=== PATIENT | male | born 1980 | race Caucasian/White ===

== ENCOUNTER 2016-10-23 10:45 | Emergency (ER) | payer OTHER ==
[2016-10-23 10:45] VITALS: BMI 32.9
[2016-10-23 10:51] VITALS: TEMP 98
--- NOTE | 2016-10-23 11:40 | C.PDOC ---
History Of Present Illness 10/23/2016 José Miguel Sethi is a 36 year old male, whose past medical history includes tendonitis, presents to the emergency department complaining of bilateral knee pain for the past three days. Patient reports that seven months ago he was evaluated at the emergency room for the same symptoms, and when he followed up with the orthopedics he was diagnosed with tendonitis. Patient notes working in construction and has not taken any medication to relieve the pain. Patient denies any trauma or injuries. Patient denies any chest pain, shortness of breath, back pain, dysuria, fever, or other complaints. Time Seen by Provider: 10/23/16 11:01 Chief Complaint (Nursing): Lower Extremity Problem/Injury History Per: Patient History/Exam Limitations: no limitations Onset/Duration Of Symptoms: Days (3 days) Current Symptoms Are (Timing): Still Present - Hip Description Of Injury: denies: Fell - Knee Description Of Injury: denies: Fell - Ankle/Foot Description Of Injury: denies: Fell, Struck With Object Past Medical History Reviewed: Historical Data, Nursing Documentation, Vital Signs Vital Signs: Last Vital Signs Temp 98 F 10/23/16 10:48 Pulse 78 10/23/16 11:47 Resp 16 10/23/16 11:47 BP 138/78 10/23/16 11:47 Pulse Ox 100 10/23/16 22:12 - Medical History PMH: Asthma, Gastritis - [facility] Procedures CLOSURE SKIN & SUBCUTANEOUS NEC (02/08/13) TETANUS TOXOID ADMINIST (02/08/13) Family History: States: Unknown Family Hx - Social History Hx Tobacco Use: Yes Hx Alcohol Use: No (STOPPED DRINKING) Hx Substance Use: No - Immunization History Hx Tetanus Toxoid Vaccination: No Hx Influenza Vaccination: No Hx Pneumococcal Vaccination: No Review Of Systems Constitutional: Negative for: Fever Cardiovascular: Negative for: Chest Pain Respiratory: Negative for: Shortness of Breath Gastrointestinal: Negative for: Vomiting, Abdominal Pain Genitourinary: Negative for: Dysuria Musculoskeletal: Positive for: Leg Pain (bilateral knee pain ). Negative for: Back Pain Neurological: Negative for: Dizziness Physical Exam - Physical Exam Appears: Well, Non-toxic, No Acute Distress Skin: Normal Color, Warm, Dry Head: Atraumatic, Normacephalic Back: Normal Inspection Extremity: Normal ROM, Tenderness (mild tenderness distal to patella bilaterally ), No Calf Tenderness, No Swelling, Other (no erythema or warmth) Extremity: Bilateral: No Pedal Edema, Normal Color And Temperature, Normal ROM Pulses: Left Dorsalis Pedis: Normal, Right Dorsalis Pedis: Normal Neurological/Psych: Oriented x3, Normal Speech, Normal Cognition, Normal Motor, Normal Sensation ED Course And Treatment O2 Sat by Pulse Oximetry: 100 (room air) Pulse Ox Interpretation: Normal Medical Decision Making Medical Decision Making: pt reports spome improvement in pain in knees after Toradol. Will d/c with nsaids and pmd f/u. Impression: 36 year old male with mild tenderness distal to patella. Plan: --Toradol -- Reassess and disposition Disposition Counseled Patient/Family Regarding: Diagnosis, Need For Followup, Rx Given - Disposition Referrals: [facility] [Outside] [facility] [Outside] Disposition: HOME/ ROUTINE Disposition Time: 11:38 Condition: IMPROVED Additional Instructions: New [place] Naproxen stephanie prescrbied (con comida). Seguir en la clnica ketan o con el ortopedista Dr. Dwyer si el dolor persiste. Prescriptions: Naproxen 500 mg PO BID #20 tab Instructions: Patellar Tendinitis (ED) Forms: Gen Discharge Inst Vietnamese, [employer] (Vietnamese) Print Language: GUATEMALAN - Clinical Impression Clinical Impression: Knee pain, bilateral, Patellar tendonitis of both knees - Scribe Statement The provider has reviewed the documentation as recorded by the Scribe 10/23/2016 Scribe Attestation: Asha Hercules MD Scribe Attestation: All medical record entries made by the Scribe were at my direction and personally dictated by me. I have reviewed the chart and agree that the record accurately reflects my personal performance of the history, physical exam, medical decision making, and the department course for this patient. I have also personally directed, reviewed, and agree with the discharge instructions and disposition.
[2016-10-23 11:48] VITALS: BP 138/78; PULSE 78; RESP 16
[2016-10-23 12:12] VITALS: O2SAT 100
== END 2016-10-23 11:47 | disposition home or self-care (01) ==
LOC: C.ER 10:45
DX: M76.52 Patellar tendinitis, left knee (principal); M76.51 Patellar tendinitis, right knee; M25.562 Pain in left knee; M25.561 Pain in right knee
CPT/HCPCS: 96372; 99283; J1885

== ENCOUNTER 2017-05-09 17:43 | Emergency (ER) | payer OTHER ==
[2017-05-09 17:43] VITALS: BMI 32.9
[2017-05-09] MEDS ORDERED: Iohexol 240 (50 ml) PO STA (17:54)
[2017-05-09] MEDS ORDERED: Sodium Chloride 0.9% 1,000 ML IV ONE (17:54)
[2017-05-09] MEDS ORDERED: Sodium Chloride 0.9% 1,000 ML ONE (17:58)
[2017-05-09] MEDS ORDERED: Iohexol 240 (50 ml) ONE (17:58)
--- NOTE | 2017-05-09 18:04 | C.PDOC ---
History Of Present Illness 37 y/o male presents to ED with complaints of intermittent mid abdominal pain for 1 week associated with nausea. Patient states last night pain became more intense and has been constant since which prompted visit to ED today. Patient reports similar symptoms 2 years ago but states they resolved on their own. Patient is able to tolerate po intake and denies vomiting, diarrhea or any other complaints at this time. Time Seen by Provider: 05/09/17 17:51 Chief Complaint (Nursing): Abdominal Pain History Per: Patient History/Exam Limitations: no limitations Onset/Duration Of Symptoms: Days Current Symptoms Are (Timing): Still Present Past Medical History Reviewed: Historical Data, Nursing Documentation, Vital Signs Vital Signs: Last Vital Signs Temp 98.6 F 05/09/17 17:46 Pulse 78 05/09/17 19:07 Resp 20 05/09/17 19:07 BP 127/80 05/09/17 19:07 Pulse Ox 98 05/09/17 19:07 - Medical History PMH: Asthma, Gastritis Surgical History: No Surg Hx - [facility] Procedures CLOSURE SKIN & SUBCUTANEOUS NEC (02/08/13) TETANUS TOXOID ADMINIST (02/08/13) Family History: States: No Known Family Hx - Social History Hx Tobacco Use: Yes Hx Alcohol Use: No (STOPPED DRINKING) Hx Substance Use: No - Immunization History Hx Tetanus Toxoid Vaccination: No Hx Influenza Vaccination: No Hx Pneumococcal Vaccination: No Review Of Systems Constitutional: Negative for: Fever, Chills Gastrointestinal: Positive for: Nausea, Abdominal Pain. Negative for: Vomiting , Diarrhea Skin: Negative for: Rash Physical Exam - Physical Exam Appears: Non-toxic, No Acute Distress Skin: Warm, Dry, No Rash Head: Atraumatic, Normacephalic Oral Mucosa: Moist Neck: Normal ROM, Supple Cardiovascular: Rhythm Regular Respiratory: Normal Breath Sounds, No Rales, No Rhonchi, No Wheezing Gastrointestinal/Abdominal: Soft, Tenderness (Epigastrium area, LUQ and LLQ ), No Guarding, No Rebound Back: No CVA Tenderness Extremity: Normal ROM, Capillary Refill (<2 seconds) Neurological/Psych: Oriented x3, Normal Speech ED Course And Treatment - Laboratory Results Result Diagrams: 05/09/17 18:02 05/09/17 18:02 Lab Interpretation: Normal O2 Sat by Pulse Oximetry: 100 (RA) Pulse Ox Interpretation: Normal - CT Scan/US CT abdomen and pelvis Other Rad Studies (CT/US): Read By Radiologist, Radiology Report Reviewed CT/US Interpretation: Accession No. : [id number]. Patient Name / ID : CORRINE MAE / [id number]. Exam Date : 05/09/2017 19:29:39 ( Approved ). Study Comment : Sex / Age : M / 37Y. Creator : STACY BOWER. Dictator : Senior Java J2Ee Developer : Newspaper Journalist : STACY BOWER. Approver2 : Report Date : 05/09/2017 20:30:00. My Comment : . [facility] Division of Radiology. [address] [place] [address]. Tel. no. . . . Patient Name: CARMELITA CASTLE . Pt. [address]: [address] [place] [address]. Rec #: [id number]. [place] [address]: Jared STAFFORD, Idalmis Redding. Pt Order Location: [facility] : 1980 Male Age: 37 Order #: [id number]. Reason for exam: abd pain. . . . . . CT Scan. . . ABD PELVIS PO IV CONTRAST Exam Date : 05/09/17. . This imaging exam was performed at [facility]. EXAM: CT Abdomen and Pelvis With Intravenous Contrast. . EXAM DATE/TIME: 05/09/2017 5: 54 PM. . CLINICAL HISTORY: 37 years old, male; Pain; Abdominal pain; Periumbilical; Additional info: Abd. pain. . TECHNIQUE: Axial computed tomography images of the abdomen and pelvis with intravenous. contrast. All CT scans at this facility use one or more dose reduction. techniques, viz.: automated exposure control; ma/kV adjustment per patient size. (including targeted exams where dose is matched to indication; i.e. head); or. iterative reconstruction technique. Coronal and sagittal reformatted images were created and reviewed. . CONTRAST: 100 mL of omnipaque 300 administered intravenously. . COMPARISON: CT - ABD PELVIS PO IV CONTRAST 2013-04-19 11: 20. . FINDINGS: Lower thorax: Heart size is normal. No distal esophagus is partially. distended with air and fluid there is dependent atelectasis there is minimal. scarring at the lung bases. . ABDOMEN: Liver: There is fatty infiltration of the liver. Gallbladder and bile ducts: unremarkable. Pancreas : unremarkable. Spleen: unremarkable. Adrenals: unremarkable. Kidneys and ureters: unremarkable. Stomach and bowel: Stomach is distended with contrast and air. Rotation is. normal. Small bowel is incompletely opacified with oral contrast which limits. evaluation of the ileocecal region. There is no obstruction. Terminal ileum is. unremarkable. Visualized portions of the appendix is unremarkable. Colon is. incompletely distended which limits evaluation. There is scattered. diverticulosis old. Appendix: See stomach and bowel. . PELVIS: Bladder: unremarkable. Reproductive: Seminal vesicles and prostate are unremarkable. . ABDOMEN and PELVIS: Intraperitoneal space: There is no free air or free fluid. Bones/joints: There are no acute osseous abnormalities. There is minimal. spondylosis. Soft tissues: There is a small fat containing umbilical hernia. Vasculature: Vascular structures are unremarkable. Lymph nodes: There is no pathologic adenopathy. . IMPRESSION: Fatty liver, no acute solid visceral abnormality; no CT findings. of acute appendicitis or diverticulitis. . Additional nonemergent findings as described above. . Dictated By: Stacy Alicea MD., MD. Dictated Date/Time: 05/09/172029. Signed By: Stacy Calvert MD. Date Signed: 05/09/172029. Transcribed By: [facility]. Transcribe Date/Time: 05/09/172029. CHARLY/TOD Reevaluation Time: 20:46 Reassessment Condition: Improved Disposition Counseled Patient/Family Regarding: Studies Performed, Diagnosis, Need For Followup, Rx Given - Disposition Referrals: [facility] [Outside] Disposition: HOME/ ROUTINE Disposition Time: 20:48 Condition: IMPROVED Additional Instructions: Take Pepcid AC twice a day. Follow up with a central office technician for furtherwork-up Prescriptions: Ondansetron ODT [Zofran ODT] 1 odt PO BID PRN #6 odt PRN Reason: Nausea/Vomiting Instructions: Acute Abdomen (Belly Pain), Adult (DC) Forms: [employer] Connect (Italian) - Clinical Impression Clinical Impression: Abdominal discomfort - Scribe Statement The provider has reviewed the documentation as recorded by the Crystalibremington Martinez All medical record entries made by the Crystalibremington were at my direction and personally dictated by me. I have reviewed the chart and agree that the record accurately reflects my personal performance of the history, physical exam, medical decision making, and the department course for this patient. I have also personally directed, reviewed, and agree with the discharge instructions and disposition.
[2017-05-09 18:06] LABS: BASO # 0.1 K/uL (0.0-0.2); BASO % 1.7 % (0.0-2.0); EOS # 0.3 K/uL (0.0-0.7); EOS % 3.3 % (0.0-4.0); HEMOGLOBIN 15.1 g/dL (12.0-18.0); LYMPH # 3.5 K/uL (1.0-4.3); LYMPH % 39.1 % (20.0-40.0); MEAN CELL VOLUME 87.8 fL (80.0-94.0); MEAN CORPUSCULAR HEMOGLOBIN 30.1 pg (27.0-31.0); MEAN CORPUSCULAR HGB CONC 34.3 g/dL (33.0-37.0); MEAN PLATELET VOLUME 8.9 fL (7.2-11.7); MONO # 0.6 K/uL (0.0-0.8); MONO % 6.7 % (0.0-10.0); NEUT # 4.5 K/uL (1.8-7.0); NEUT % 49.2 % (50.0-75.0); NRBC % 0.1 % (0.0-2.0); RBC 5.02 Mil/uL (4.40-5.90); RED CELL DISTRIBUTION WIDTH 13.5 % (11.5-14.5)
[2017-05-09 18:08] LABS: URINE BILIRUBIN NEGATIVE (NEGATIVE); URINE BLOOD NEGATIVE (NEGATIVE); URINE CLARITY Clear (Clear); URINE COLOR Yellow (YELLOW); URINE GLUCOSE (UA) NORMAL (Normal); URINE LEUKOCYTE ESTERASE NEG Leu/uL (Negative); URINE PROTEIN 1+ mg/dL (NEGATIVE)
[2017-05-09 18:32] LABS: ALB/GLOB RATIO 1.2 (1.0-2.1); ALBUMIN 4.8 g/dL (3.5-5.0); ALT/SGPT 44 U/L (21-72); AST/SGOT 35 U/L (17-59); BLOOD UREA NITROGEN 15 mg/dL (9-20); CALCIUM 9.1 mg/dl (8.6-10.4); GFR AFRICAN-AMERICAN > 60; GFR NON-AFRICAN AMERICAN > 60; LIPASE 154 U/L (23-300)
[2017-05-09] MEDS ORDERED: Iohexol 300 100 ML IJ ONE (18:49)
--- NOTE | 2017-05-09 20:30 | CT ---
EXAM: CT Abdomen and Pelvis With Intravenous Contrast EXAM DATE/TIME: 05/09/2017 5:54 PM CLINICAL HISTORY: 37 years old, male; Pain; Abdominal pain; Periumbilical; Additional info: Abd pain TECHNIQUE: Axial computed tomography images of the abdomen and pelvis with intravenous contrast. All CT scans at this facility use one or more dose reduction techniques, viz.: automated exposure control; ma/kV adjustment per patient size (including targeted exams where dose is matched to indication; i.e. head); or iterative reconstruction technique. Coronal and sagittal reformatted images were created and reviewed. CONTRAST: 100 mL of omnipaque 300 administered intravenously. COMPARISON: CT - ABD PELVIS PO IV CONTRAST 2013-04-19 11:20 FINDINGS: Lower thorax: Heart size is normal. No distal esophagus is partially distended with air and fluid there is dependent atelectasis there is minimal scarring at the lung bases ABDOMEN: Liver: There is fatty infiltration of the liver. Gallbladder and bile ducts: unremarkable Pancreas: unremarkable Spleen: unremarkable Adrenals: unremarkable Kidneys and ureters: unremarkable Stomach and bowel: Stomach is distended with contrast and air. Rotation is normal. Small bowel is incompletely opacified with oral contrast which limits evaluation of the ileocecal region. There is no obstruction. Terminal ileum is unremarkable. Visualized portions of the appendix is unremarkable. Colon is incompletely distended which limits evaluation. There is scattered diverticulosis old Appendix: See stomach and bowel PELVIS: Bladder: unremarkable Reproductive: Seminal vesicles and prostate are unremarkable. ABDOMEN and PELVIS: Intraperitoneal space: There is no free air or free fluid. Bones/joints: There are no acute osseous abnormalities. There is minimal spondylosis Soft tissues: There is a small fat containing umbilical hernia. Vasculature: Vascular structures are unremarkable. Lymph nodes: There is no pathologic adenopathy. IMPRESSION: Fatty liver, no acute solid visceral abnormality; no CT findings of acute appendicitis or diverticulitis Additional nonemergent findings as described above.
[2017-05-09 20:59] VITALS: BP 122/82; PULSE 71; RESP 18; TEMP 97.6; O2SAT 99
== END 2017-05-09 21:00 | disposition home or self-care (01) ==
LOC: C.ER 17:43
DX: R10.13 Epigastric pain (principal)
CPT/HCPCS: 74177; 80053; 81001; 83690; 85025; 96360; 99285; J7040; Q9966; Q9967

== ENCOUNTER 2017-08-03 17:15 | Emergency (ER) | payer OTHER ==
[2017-08-03 17:39] VITALS: BMI 29.9
[2017-08-03 17:44] VITALS: RESP 16
[2017-08-03] MEDS ORDERED: Sodium Chloride 0.9% 1,000 ML IV ONE (18:38)
--- NOTE | 2017-08-03 18:53 | C.PDOC ---
History Of Present Illness 37 y/o male with history of Asthma presents to ED with c/o intermittent worsening abdominal pain. Patient admits to nausea but is able to tolerate po intake. Patient also c/o headache, congestion, yellow phlegm cough since this morning and urinary frequency for 2 months. Patient denies fever, chills, chest pain, nausea, vomiting or any other complaints at this time. Time Seen by Provider: 08/03/17 18:03 Chief Complaint (Nursing): Abdominal Pain History Per: Patient History/Exam Limitations: no limitations Onset/Duration Of Symptoms: Days Current Symptoms Are (Timing): Still Present Location Of Pain/Discomfort: Diffuse Past Medical History Reviewed: Historical Data, Nursing Documentation, Vital Signs Vital Signs: Last Vital Signs Temp 97.7 F 08/03/17 17:41 Pulse 69 08/03/17 17:41 Resp 16 08/03/17 17:41 BP 135/81 08/03/17 17:41 Pulse Ox 100 08/03/17 18:54 - Medical History PMH: Asthma, Gastritis Surgical History: No Surg Hx - [facility] Procedures CLOSURE SKIN & SUBCUTANEOUS NEC (02/08/13) TETANUS TOXOID ADMINIST (02/08/13) Family History: States: No Known Family Hx - Social History Hx Tobacco Use: Yes Hx Alcohol Use: No (STOPPED DRINKING) Hx Substance Use: No - Immunization History Hx Tetanus Toxoid Vaccination: No Hx Influenza Vaccination: No Hx Pneumococcal Vaccination: No Review Of Systems Constitutional: Negative for: Fever, Chills Cardiovascular: Negative for: Chest Pain Respiratory: Positive for: Cough Gastrointestinal: Positive for: Abdominal Pain. Negative for: Nausea, Vomiting Genitourinary: Positive for: Frequency. Negative for: Dysuria Skin: Negative for: Rash Physical Exam - Physical Exam Appears: Non-toxic, No Acute Distress Skin: Warm, Dry, No Rash Head: Atraumatic, Normacephalic Eye(s): bilateral: Normal Inspection Oral Mucosa: Moist Throat: Erythema, No Exudate, No Drooling Neck: Normal ROM, Supple Cardiovascular: Rhythm Regular Respiratory: Normal Breath Sounds, No Rales, No Rhonchi, No Wheezing Gastrointestinal/Abdominal: Soft, Tenderness (Diffuse), Guarding (Voluntary), No Rebound Back: No CVA Tenderness, No Paraspinal Tenderness Neurological/Psych: Oriented x3, Normal Speech, Normal Cognition ED Course And Treatment - Laboratory Results Result Diagrams: 08/03/17 18:57 08/03/17 18:57 Lab Interpretation: Normal (unchanged from prior visit 04/2017) O2 Sat by Pulse Oximetry: 100 (RA) Pulse Ox Interpretation: Normal Progress Note: CT scan done 04/2017 reviewed. Reevaluation Time: 20:39 Reassessment Condition: Unchanged (Patient still c/o abdominal pain but appears comfortable. Abdomen remains soft without localized tenderness or guarding.) Disposition Counseled Patient/Family Regarding: Studies Performed, Diagnosis, Need For Followup, Rx Given - Disposition Referrals: [facility] [Outside] Disposition: HOME/ ROUTINE Disposition Time: 20:40 Condition: STABLE Prescriptions: Dicyclomine [Bentyl] 20 mg PO QID PRN #20 tab PRN Reason: Pain, Moderate (4-7) Instructions: Acute Abdomen (Belly Pain), Adult (DC) Forms: [employer] (Sao Tomean) - Clinical Impression Clinical Impression: Abdominal pain - Scribe Statement The provider has reviewed the documentation as recorded by the Crystalibremington Martinez All medical record entries made by the Crystalibremington were at my direction and personally dictated by me. I have reviewed the chart and agree that the record accurately reflects my personal performance of the history, physical exam, medical decision making, and the department course for this patient. I have also personally directed, reviewed, and agree with the discharge instructions and disposition.
[2017-08-03 19:00] LABS: BASO # 0.1 K/uL (0.0-0.2); EOS # 0.8 K/uL (0.0-0.7); EOS % 8.6 % (0.0-4.0); HEMOGLOBIN 14.9 g/dL (12.0-18.0); LYMPH # 2.8 K/uL (1.0-4.3); LYMPH % 31.6 % (20.0-40.0); MEAN CELL VOLUME 88.1 fL (80.0-94.0); MEAN CORPUSCULAR HGB CONC 34.1 g/dL (33.0-37.0); MEAN PLATELET VOLUME 8.6 fL (7.2-11.7); MONO # 0.6 K/uL (0.0-0.8); MONO % 6.6 % (0.0-10.0); NEUT # 4.6 K/uL (1.8-7.0); NEUT % 52.2 % (50.0-75.0); NRBC % 0.1 % (0.0-2.0); RBC 4.95 Mil/uL (4.40-5.90); RED CELL DISTRIBUTION WIDTH 13.1 % (11.5-14.5); WHITE BLOOD COUNT 8.8 K/uL (4.8-10.8)
[2017-08-03] MEDS ORDERED: Sodium Chloride 0.9% 1,000 ML ONE (19:05)
[2017-08-03 19:14] LABS: ALB/GLOB RATIO 1.6 (1.0-2.1); ALBUMIN 4.8 g/dL (3.5-5.0); ALT/SGPT 35 U/L (21-72); AST/SGOT 31 U/L (17-59); BLOOD UREA NITROGEN 12 mg/dL (9-20); CALCIUM 9.1 mg/dl (8.6-10.4); GFR AFRICAN-AMERICAN > 60; GFR NON-AFRICAN AMERICAN > 60; LIPASE 120 U/L (23-300)
[2017-08-03 19:21] LABS: URINE BILIRUBIN NEGATIVE (NEGATIVE); URINE BLOOD NEGATIVE (NEGATIVE); URINE CLARITY Clear (Clear); URINE COLOR Straw (YELLOW); URINE GLUCOSE (UA) NORMAL (Normal); URINE LEUKOCYTE ESTERASE NEG Leu/uL (Negative); URINE PROTEIN NEGATIVE (NEGATIVE); URINE UROBILINOGEN NORMAL mg/dL (0.2-1.0)
[2017-08-03 21:26] VITALS: BP 125/79; PULSE 62; TEMP 97.8; O2SAT 99
== END 2017-08-03 21:26 | disposition home or self-care (01) ==
LOC: C.ER 17:15
DX: R10.9 Unspecified abdominal pain (principal)
CPT/HCPCS: 80053; 81001; 83690; 85025; 96361; 96374; 99284; J2405; J7030

== ENCOUNTER 2017-09-17 14:38 | Emergency (ER) | payer OTHER ==
[2017-09-17 14:41] VITALS: BMI 30.2
[2017-09-17 14:43] VITALS: TEMP 98.1
[2017-09-17] MEDS ORDERED: Sodium Chloride 0.9% 1,000 ML IV ONE (15:02)
--- NOTE | 2017-09-17 15:21 | C.PDOC ---
History Of Present Illness Pt is a 37 year old male patient with hx of asthma and FHx of DM presents to the ER with periumbilical pain. Patient states that he has had this pain for 4 months intermittently and the pain began again last night. Patient reports pain is a burning sensation and pinching feeling; pain scale is 7/10. Patient saw Dr. Esparza earlier this month for the same issues and was given H. Pylori medications. Patient reports the medication is not helping him. Associated symptoms includes nausea and headache. Patient denies vomiting, fever, and diarrhea. No other complaints at this time. PMD: Dr. Esparza ([facility]) . Time Seen by Provider: 09/17/17 15:02 Chief Complaint (Nursing): Abdominal Pain History Per: Patient History/Exam Limitations: no limitations Onset/Duration Of Symptoms: Intermittent Episodes, Other (4 months) Location Of Pain/Discomfort: Periumbilical Quality Of Discomfort: Burning, Other (pinching) Associated Symptoms: Nausea, Other (headache). denies: Fever, Vomiting, Diarrhea Past Medical History Reviewed: Historical Data, Nursing Documentation, Vital Signs Vital Signs: Last Vital Signs Temp 98.1 F 09/17/17 14:41 Pulse 73 09/17/17 18:19 Resp 20 09/17/17 18:19 BP 148/87 09/17/17 18:19 Pulse Ox 99 09/17/17 18:40 - Medical History PMH: Asthma, Gastritis - [facility] Procedures CLOSURE SKIN & SUBCUTANEOUS NEC (02/08/13) TETANUS TOXOID ADMINIST (02/08/13) Family History: States: Diabetes - Social History Hx Tobacco Use: No (quit smoking couple yrs ago) Hx Alcohol Use: No Hx Substance Use: No - Immunization History Hx Tetanus Toxoid Vaccination: No Hx Influenza Vaccination: No Hx Pneumococcal Vaccination: No Review Of Systems Except As Marked, All Systems Reviewed And Found Negative. Constitutional: Negative for: Fever Gastrointestinal: Positive for: Nausea, Abdominal Pain (periumbilical pain). Negative for: Vomiting Neurological: Positive for: Headache Physical Exam - Physical Exam Appears: Well, Non-toxic, No Acute Distress Skin: Normal Color, Warm, Dry Head: Atraumatic, Normacephalic Eye(s): bilateral: Normal Inspection, EOMI Ear(s): Bilateral: Normal Nose: Normal Tongue: Normal Appearing Lips: Normal Appearing Teeth: Normal Dentition Throat: Normal Neck: Normal ROM, Supple Chest: Symmetrical, No Deformity Cardiovascular: Rhythm Regular Respiratory: Normal Breath Sounds Gastrointestinal/Abdominal: Bowel Sounds (nml), Soft, Tenderness (+ periumbilical tenderness ), No Guarding, No Rebound Rectal: Deferred Extremity: Normal ROM (x4) Extremity: Bilateral: Atraumatic, Normal ROM Neurological/Psych: Oriented x3, Normal Speech, Normal Motor, Normal Sensation Gait: Steady ED Course And Treatment - Laboratory Results Result Diagrams: 09/17/17 16:16 09/17/17 16:16 O2 Sat by Pulse Oximetry: 99 (RA) Pulse Ox Interpretation: Normal Medical Decision Making Medical Decision Making: Initial impression: abdominal pain Differential Diagnosis: hernia, H. Pylori, colitis Initial Plan: -- blood work -- morphine 6mg -- pepcid 20 mg -- IV fluids -- UA 6:43 PM - Pt feels better. Constipation on CT. Will give bottle of Mg Citrate and he will drink that at home. Disposition Counseled Patient/Family Regarding: Studies Performed, Diagnosis, Need For Followup, Rx Given - Disposition Referrals: [facility] [Outside] Disposition: HOME/ ROUTINE Disposition Time: 18:35 Condition: STABLE Additional Instructions: Mr. Sethi, thank you for letting us take care of you today. Return to the ER if your symptoms worsen, or if any problems. You were given a bottle of Magnesium Citrate. Drink the whole bottle when you get home to relieve your constipation. Take the ibuprofen as prescribed for additional pain relief. Call the phone number listed below to make an appointment at the [facility] (Dr. Esparza). Prescriptions: Ibuprofen [Motrin Tab] 1 tab PO TID PRN #15 tab PRN Reason: Pain, Moderate (4-7) Forms: Gen Discharge Inst Swiss Print Language: TAJIK - POA Present On Arrival: None - Clinical Impression Clinical Impression: Abdominal pain, Constipation - Scribe Statement The provider has reviewed the documentation as recorded by the Jhon Mckeon Do Provider Attestation: All medical record entries made by the Scribe were at my direction and personally dictated by me. I have reviewed the chart and agree that the record accurately reflects my personal performance of the history, physical exam, medical decision making, and the department course for this patient. I have also personally directed, reviewed, and agree with the discharge instructions and disposition.
[2017-09-17] MEDS ORDERED: Iohexol 240 (50 ml) PO ONE (15:29)
[2017-09-17] MEDS ORDERED: Iohexol 240 (50 ml) ONE (15:57)
[2017-09-17 16:22] LABS: BASO # 0.1 K/uL (0.0-0.2); BASO % 1.2 % (0.0-2.0); EOS # 0.6 K/uL (0.0-0.7); EOS % 8.2 % (0.0-4.0); HEMOGLOBIN 14.5 g/dL (12.0-18.0); LYMPH # 2.3 K/uL (1.0-4.3); LYMPH % 29.7 % (20.0-40.0); MEAN CELL VOLUME 87.5 fL (80.0-94.0); MEAN CORPUSCULAR HEMOGLOBIN 30.3 pg (27.0-31.0); MEAN CORPUSCULAR HGB CONC 34.6 g/dL (33.0-37.0); MEAN PLATELET VOLUME 9.3 fL (7.2-11.7); MONO # 0.4 K/uL (0.0-0.8); MONO % 5.3 % (0.0-10.0); NEUT # 4.2 K/uL (1.8-7.0); NEUT % 55.6 % (50.0-75.0); NRBC % 0.1 % (0.0-2.0); RBC 4.79 Mil/uL (4.40-5.90); URINE BILIRUBIN NEGATIVE (NEGATIVE); URINE BLOOD NEGATIVE (NEGATIVE); URINE CLARITY Clear (Clear); URINE COLOR Yellow (YELLOW); URINE GLUCOSE (UA) NORMAL (Normal); URINE LEUKOCYTE ESTERASE NEG Leu/uL (Negative); URINE PROTEIN NEGATIVE (NEGATIVE); URINE UROBILINOGEN NORMAL mg/dL (0.2-1.0); WHITE BLOOD COUNT 7.6 K/uL (4.8-10.8)
[2017-09-17 16:32] LABS: ALB/GLOB RATIO 1.4 (1.0-2.1); ALBUMIN 4.3 g/dL (3.5-5.0); ALT/SGPT 40 U/L (21-72); AST/SGOT 26 U/L (17-59); BLOOD UREA NITROGEN 18 mg/dL (9-20); GFR AFRICAN-AMERICAN > 60; GFR NON-AFRICAN AMERICAN > 60; LIPASE 143 U/L (23-300)
[2017-09-17] MEDS ORDERED: Iodixanol 320 MG/ML 100 ML BOTTLE IV ONE (17:31)
[2017-09-17] MEDS ORDERED: metroNIDAZOLE IV 500 mg/100 ml 500 MG/100 ML BAG IV ONE (18:02)
--- NOTE | 2017-09-17 18:09 | CT ---
Date of service: 09/17/2017 PROCEDURE: CT Abdomen and Pelvis with contrast HISTORY: Abd Pain - periumbilical COMPARISON: Comparison is made with the previous study dated 05/09/2017 TECHNIQUE: Contrast dose: 100 mL Visipaque 320. Axial and reformatted coronal and sagittal CT images of the abdomen and pelvis were obtained after IV and oral contrast administration. Radiation dose: Total exam DLP = 624.91 mGy-cm. This CT exam was performed using one or more of the following dose reduction techniques: Automated exposure control, adjustment of the mA and/or kV according to patient size, and/or use of iterative reconstruction technique. FINDINGS: LOWER THORAX: No acute pathology LIVER: Fatty liver is again noted. . No gross lesion or ductal dilatation. GALLBLADDER AND BILE DUCTS: Unremarkable. PANCREAS: Unremarkable. No gross lesion or ductal dilatation. SPLEEN: Unremarkable. ADRENALS: Unremarkable. No mass. KIDNEYS AND URETERS: Unremarkable. No hydronephrosis. No solid mass. VASCULATURE: Unremarkable. No aortic aneurysm. BOWEL: Mild constipation is noted. . No obstruction. No gross mural thickening. Scattered few colonic diverticulosis seen in the descending and sigmoid colon without definite evidence of diverticulitis. APPENDIX: No CT evidence of appendicitis. PERITONEUM: Unremarkable. No free fluid. No free air. LYMPH NODES: Unremarkable. No enlarged lymph nodes. BLADDER: Unremarkable. REPRODUCTIVE: Unremarkable. BONES: No acute fracture. OTHER FINDINGS: None. IMPRESSION: Mild constipation. No CT evidence of appendicitis diverticulitis or cholecystitis.
[2017-09-17] MEDS ORDERED: Magnesium Citrate Oral SOL (300 ml) PO ONE (18:14)
[2017-09-17 18:21] VITALS: BP 148/87; PULSE 73; RESP 20
[2017-09-17 18:39] VITALS: O2SAT 99
[2017-09-17] MEDS ORDERED: Magnesium Citrate Oral SOL (300 ml) ONE (18:52)
== END 2017-09-17 18:45 | disposition home or self-care (01) ==
LOC: C.ER 14:38
DX: K59.00 Constipation, unspecified (principal); R10.33 Periumbilical pain
CPT/HCPCS: 74177; 80053; 81001; 83690; 85025; 96374; 96375; 99285; J1885; J2270; J7030; Q9966; Q9967

== ENCOUNTER 2018-02-21 17:58 | Emergency (ER) | payer OTHER ==
[2018-02-21 18:09] VITALS: BMI 30.4
[2018-02-21 18:11] VITALS: RESP 18; TEMP 98.3
[2018-02-21] MEDS ORDERED: DiphenhydrAMINE 50 mg/ml Inj IVP STA (18:57)
[2018-02-21] MEDS ORDERED: Sodium Chloride 0.9% 1,000 ML IV STA (18:57)
--- NOTE | 2018-02-21 19:05 | C.PDOC ---
History Of Present Illness 38 y/o M c PMHx asthma p/w headache x 1 day. States had same headache 1 week ago which lasted for 3 days. Never had this headache prior to that. States pain is bilateral temporal and frontal, like a pressure, associated with nausea and photophobia. Denies fever, stiff neck, vision change, vomiting, numbness, weakness. Did not take any medication for the headache. Time Seen by Provider: 02/21/18 18:50 Chief Complaint (Nursing): Headache Past Medical History Vital Signs: Last Vital Signs Temp 98.3 F 02/21/18 18:09 Pulse 76 02/21/18 18:09 Resp 18 02/21/18 18:09 BP 136/83 02/21/18 18:09 Pulse Ox 99 02/21/18 18:09 - Medical History PMH: Asthma, Gastritis - [facility] Procedures CLOSURE SKIN & SUBCUTANEOUS NEC (02/08/13) TETANUS TOXOID ADMINIST (02/08/13) Family History: States: Unknown Family Hx, Diabetes - Social History Hx Tobacco Use: Yes Hx Alcohol Use: No Hx Substance Use: No - Immunization History Hx Tetanus Toxoid Vaccination: No Hx Influenza Vaccination: No Hx Pneumococcal Vaccination: No Review Of Systems Except As Marked, All Systems Reviewed And Found Negative. Constitutional: Negative for: Fever Cardiovascular: Negative for: Chest Pain Physical Exam - Physical Exam Additional Physical Exam Comments: Constitutional: No acute distress. Head: Temporal arteries palpable bilaterally. Eyes:No mid dilated pupils. ENT: No lacrimation or rhinorrhea. Neck: No nuchal rigidity. Cardiovascular: Regular rate. Radial pulse 2+ bilaterally. Chest: No tenderness. Respiratory: Clear to auscultation bilaterally. GI: Soft. Nontender. Nondistended. Back: No CVA tenderness. Musculoskeletal: No tenderness or swelling of extremities. Skin: No rash. Neurologic: Alert, no focal deficit. ED Course And Treatment - Laboratory Results Result Diagrams: 02/21/18 19:06 02/21/18 19:06 O2 Sat by Pulse Oximetry: 99 Medical Decision Making Medical Decision Making: CT Head: FINDINGS: BRAIN No acute intraparenchymal hemorrhage. No mass lesion. No CT evidence for acute territorial infarct. No midline shift or extra-axial collections. VENTRICLES: No hydrocephalus. ORBITS: The orbits are unremarkable. SINUSES AND MASTOIDS: Bilateral ethmoid sinusitis is noted. The mastoid air cells are clear. BONES: No fracture. SOFT TISSUES: Unremarkable. IMPRESSION: Bilateral ethmoid sinusitis. No acute intracranial abnormality. States feels better after treatment. Will discharge, instructed to return to ED for worsening pain, fever, vomiting. Otherwise, advised neurology follow up for persistent headache. Disposition - Disposition Referrals: Lia Marr MD [Staff Provider] - Disposition: HOME/ ROUTINE Disposition Time: 22:28 Condition: STABLE Prescriptions: Ibuprofen [Motrin] 600 mg PO Q6 #25 tab Instructions: Headache, Adult Forms: [facility] (Mohawk), Gen Discharge Inst Turkmen Print Language: K[place]ILI - Clinical Impression Clinical Impression: Headache
[2018-02-21 19:09] LABS: BASO # 0.1 K/uL (0.0-0.2); EOS # 0.6 K/uL (0.0-0.7); EOS % 8.6 % (0.0-4.0); HEMOGLOBIN 15.4 g/dL (12.0-18.0); LYMPH # 2.6 K/uL (1.0-4.3); LYMPH % 38.5 % (20.0-40.0); MEAN CORPUSCULAR HEMOGLOBIN 30.6 pg (27.0-31.0); MEAN CORPUSCULAR HGB CONC 33.8 g/dL (33.0-37.0); MEAN PLATELET VOLUME 9.2 fL (7.2-11.7); MONO # 0.4 K/uL (0.0-0.8); MONO % 6.5 % (0.0-10.0); NEUT # 3.1 K/uL (1.8-7.0); NEUT % 45.4 % (50.0-75.0); RBC 5.02 Mil/uL (4.40-5.90); RED CELL DISTRIBUTION WIDTH 13.5 % (11.5-14.5); WHITE BLOOD COUNT 6.8 K/uL (4.8-10.8)
[2018-02-21] MEDS ORDERED: DiphenhydrAMINE 50 mg/ml Inj ONE (19:10)
[2018-02-21 19:17] LABS: MEAN CELL VOLUME 90.6 fL (80.0-94.0)
[2018-02-21 19:21] LABS: ALB/GLOB RATIO 1.6 (1.0-2.1); ALBUMIN 4.7 g/dL (3.5-5.0); ALT/SGPT 34 U/L (21-72); AST/SGOT 30 U/L (17-59); BLOOD UREA NITROGEN 17 mg/dL (9-20); GFR NON-AFRICAN AMERICAN > 60
[2018-02-21 21:41] VITALS: BP 112/67; PULSE 64
[2018-02-21 22:09] VITALS: O2SAT 99
--- NOTE | 2018-02-22 10:39 | CT ---
Date of service: 02/21/2018 PROCEDURE: CT HEAD WITHOUT CONTRAST. HISTORY: headache COMPARISON: None available. TECHNIQUE: Axial computed tomography images were obtained through the head/brain without intravenous contrast. Radiation dose: Total exam DLP = 1020.48 mGy-cm. This CT exam was performed using one or more of the following dose reduction techniques: Automated exposure control, adjustment of the mA and/or kV according to patient size, and/or use of iterative reconstruction technique. FINDINGS: HEMORRHAGE: No intracranial hemorrhage. BRAIN: No mass effect or edema. The munoz-white matter differentiation appears intact. Please note that MRI with diffusion imaging is more sensitive in the detection of acute ischemic event. VENTRICLES: No hydrocephalus. CALVARIUM: Unremarkable. PARANASAL SINUSES: Mucosal thickening of the ethmoid air cells. The remainder of the visualized paranasal sinuses appear grossly clear. MASTOID AIR CELLS: Unremarkable as visualized. No inflammatory changes. OTHER FINDINGS: None. IMPRESSION: No acute intracranial pathology identified. Mucosal thickening of the ethmoid air cells; correlate for sinusitis. Preliminary impression was provided by [employer].
== END 2018-02-21 22:36 | disposition home or self-care (01) ==
LOC: C.ER 17:58
DX: R51 Headache (principal); Z72.0 Tobacco use
CPT/HCPCS: 70450; 80053; 82948; 85025; 96374; 96375; 99285; J1200; J1885; J2765; J7030

== ENCOUNTER 2018-06-23 20:38 | Emergency (ER) | payer OTHER ==
[2018-06-23 20:38] VITALS: BMI 30.4
[2018-06-23 21:03] VITALS: BP 146/93; PULSE 80; RESP 20; TEMP 98.7; O2SAT 99
--- NOTE | 2018-06-23 21:20 | C.PDOC ---
History Of Present Illness Patient is a 38 year old male who presents to the ED c/o headache behind his eyes for the past 2 days. He also notes severe nasal congestion consistent with seasonal allergies, which patient has had many prior evaluations for in the past. He denies any CP, visual changes, SOB, or abdominal pain. Time Seen by Provider: 06/23/18 21:16 Chief Complaint (Nursing): Headache History Per: Patient History/Exam Limitations: no limitations Onset/Duration Of Symptoms: Days (2) Current Symptoms Are (Timing): Still Present Recent travel outside of the [place]: No Additional History Per: Patient Past Medical History Reviewed: Historical Data, Nursing Documentation, Vital Signs Vital Signs: Last Vital Signs Temp 98.7 F 06/23/18 20:58 Pulse 80 06/23/18 20:58 Resp 20 06/23/18 20:58 BP 146/93 H 06/23/18 20:58 Pulse Ox 99 06/23/18 20:58 Primary Care Provider: FAMILY PROVIDER,NO - Medical History PMH: Asthma, Gastritis Surgical History: No Surg Hx - [facility] Procedures CLOSURE SKIN & SUBCUTANEOUS NEC (02/08/13) TETANUS TOXOID ADMINIST (02/08/13) Family History: States: Unknown Family Hx, Diabetes - Social History Hx Tobacco Use: Yes Hx Alcohol Use: No Hx Substance Use: No - Immunization History Hx Tetanus Toxoid Vaccination: No Hx Influenza Vaccination: No Hx Pneumococcal Vaccination: No Review Of Systems Eyes: Negative for: Vision Change ENT: Positive for: Nose Congestion Cardiovascular: Negative for: Chest Pain Respiratory: Negative for: Shortness of Breath Gastrointestinal: Negative for: Nausea, Vomiting, Abdominal Pain Neurological: Positive for: Headache (behind eyes) Physical Exam - Physical Exam Appears: Non-toxic, In Acute Distress (mild) Skin: Warm, Dry Head: Atraumatic, Normacephalic Eye(s): bilateral: Normal Inspection, PERRL Ear(s): Bilateral: Normal Nose: Other (severe nasal congestion right greater than left. kissing turbinates) Oral Mucosa: Moist Throat: Normal Neck: Normal ROM, Supple Chest: Symmetrical Cardiovascular: Rhythm Regular, No Murmur Respiratory: Normal Breath Sounds, No Rales, No Rhonchi, No Wheezing Gastrointestinal/Abdominal: Soft, No Tenderness Extremity: Normal ROM Neurological/Psych: Oriented x3 ED Course And Treatment O2 Sat by Pulse Oximetry: 99 (on RA) Pulse Ox Interpretation: Normal Medical Decision Making Medical Decision Making: Plan: Motrin 600mg PO Sudafed 30mg PO sinus headaches nasal congestion Disposition Doctor Will See Patient In The: Office Counseled Patient/Family Regarding: Studies Performed, Diagnosis - Disposition Referrals: [facility] [Outside] [facility] [place] [Outside] [facility] [Outside] [facility] [Outside] Disposition: HOME/ ROUTINE Disposition Time: 21:20 Condition: GOOD Additional Instructions: ibuprofeno/Advil 400-600 mg cada 6 horas stephanie necessario para dolor de shubham Pseudafed 30 mg cada 6 horas stephanie necessario Se descongestiona las passages nasales Claritin 10 mg en la [place]ana para reacciones allergicas y inflammacion' nasal debido al polvo de la Primavera Flonase Espray 1 espray cada lado del nariz cada 12 horas hasta el [place] Sigue con la [facility] stephanie necessario Instructions: Sinus Headache (DC) Forms: [facility] (Slovenian) Print Language: NIGERIAN - Clinical Impression Clinical Impression: Headache - PA / MOLECULAR SPECTROSCOPIST / Resident Statement MD/DO has examined the patient and agrees with the treatment plan. - Scribe Statement The provider has reviewed the documentation as recorded by the Scrib[facility] Rendon All medical record entries made by the Scribe were at my direction and personally dictated by me. I have reviewed the chart and agree that the record accurately reflects my personal performance of the history, physical exam, medical decision making, and the department course for this patient. I have also personally directed, reviewed, and agree with the discharge instructions and disposition.
== END 2018-06-23 21:32 | disposition home or self-care (01) ==
LOC: C.ER 20:38
DX: R51 Headache (principal)